=== PATIENT | female | born 1960 | race Caucasian/White ===

== ENCOUNTER 2018-07-21 18:39 | Emergency (ER) | payer BC ==
[2018-07-21] MEDS ORDERED: Ondansetron 4 MG/2 ML SDV IVPUSH ONE (19:13)
[2018-07-21] MEDS ORDERED: HYDROmorphone 1 MG/ML Syringe IVPUSH STA (19:13)
[2018-07-21] MEDS ORDERED: Tamsulosin 0.4 MG Cap.ER PO STA (19:13)
[2018-07-21] MEDS ORDERED: Sodium Chloride 0.9% 1,000 ML IV SCH (19:15)
--- NOTE | 2018-07-21 19:24 | EDM.PDOC ---
ED HPI GENERAL MEDICAL PROBLEM - General Chief Complaint: Flank Pain Stated Complaint: LEFT FLANK PAIN Time Seen by Provider: 07/21/18 18:57 Source of Information: Reports: Patient, Family (), RN Notes Reviewed History Limitations: Reports: No Limitations - History of Present Illness INITIAL COMMENTS - FREE TEXT/NARRATIVE: The patient states that she developed nausea and vomiting around 15:00, which has persisted. She then developed left flank pain around 18:00. She cannot describe the flank pain other than it is "constant". It does not radiate. She has not identified any modifiers. No urinary symptoms, such as dysuria or urinary frequency, in fact, the patient states that she thinks she is dehydrated , because she has not urinated this afternoon. No gross hematuria. No recent fever. No prior similar symptoms. The patient's PCP is Rhiannon Hernandez. Left Flank Pain Score (Numeric/FACES): 9 - Related Data Allergies Allergy/AdvReac Type Severity Reaction Status Date / Time cephalexin [From Keflex] Allergy Rash Verified 07/21/18 18:51 Iodine and Iodide Containing Allergy Rash Verified 07/21/18 18:51 Produc Penicillins Allergy Rash Verified 07/21/18 18:51 Home Meds: Home Meds Magnesium 1 tab PO DAILY 07/21/18 [History] Naltrexone 50 mg PO DAILY 07/21/18 [History] Spironolactone [Aldactone] 25 mg PO DAILY 07/21/18 [History] hydroCHLOROthiazide [Hydrochlorothiazide] 25 mg PO DAILY 07/21/18 [History] Past Medical History Cardiovascular History: Reports: Hypertension Musculoskeletal History: Reports: RA - Past Surgical History HEENT Surgical History: Reports: Oral Surgery (wisdom teeth extraction), Tonsillectomy GI Surgical History: Reports: Appendectomy Female Surgical History: Reports: Section (x 2), D&C (x 2), Hysterectomy, Salpingo-Oophorectomy (bilateral) Dermatological Surgical History: Reports: Plastic Surgical Reconstruction/ Repair (abdominoplasty (tummy tuck)) Social & Family History - Tobacco Use Smoking Status *Q: Never Smoker Second Hand Smoke Exposure: No - Caffeine Use Caffeine Use: Reports: Coffee - Alcohol Use Alcohol Use History: Yes Alcohol Use Frequency: Rarely - Recreational Drug Use Recreational Drug Use: No - Living Situation & Occupation Living situation: Reports: , with Spouse Occupation: Unemployed ED ROS GENERAL - Review of Systems Review Of Systems: ROS reveals no pertinent complaints other than HPI. ED EXAM, RENAL/ - Physical Exam Exam: See Below Exam Limited By: No Limitations General Appearance: Alert, WD/WN, Mild Distress (Moving around exam room - can' t get comfortable) Eye Exam: Bilateral Eye: EOMI, Normal Inspection Ears: Normal External Exam, Hearing Grossly Normal Nose: Normal Inspection Throat/Mouth: Normal Inspection, Normal Lips, Normal Voice, No Airway Compromise Head: Atraumatic, Normocephalic Neck: Normal Inspection, Full Range of Motion Respiratory/Chest: No Respiratory Distress, Lungs Clear, Normal Breath Sounds, No Accessory Muscle Use Cardiovascular: Normal Peripheral Pulses, Regular Rate, Rhythm, No Edema, No Gallop, No JVD, No Murmur, No Rub GI/Abdominal: Normal Bowel Sounds, Soft, Non-Tender, No Organomegaly, No Distention, No Abnormal Bruit, No Mass (Female) Exam: Deferred Back Exam: Normal Inspection, Full Range of Motion. No: CVA Tenderness (L), CVA Tenderness (R) Extremities: Normal Inspection, Normal Range of Motion, No Pedal Edema, Normal Capillary Refill Neurological: Alert, Oriented, Normal Cognition, No Motor/Sensory Deficits Psychiatric: Normal Affect Skin Exam: Warm, Dry, Intact, Normal Color, No Rash Course - Vital Signs Last Recorded V/S: Last Vital Signs Temp 36.0 C 07/21/18 18:49 Pulse 84 07/21/18 18:49 Resp 18 07/21/18 18:49 BP 179/116 H 07/21/18 18:49 Pulse Ox 95 07/21/18 18:49 - Orders/Labs/Meds Orders: Active Orders 24 hr Category Date Time Status Strain Urine [RC] ASDIRECTED Care 07/21/18 19:13 Active Sodium Chloride 0.9% [Normal Saline] 1,000 ml Med 07/21/18 19:15 Active IV ASDIRECTED Medication Orders Sodium Chloride (Normal Saline) 1,000 mls @ 150 mls/hr IV ASDIRECTED MARELY Last Admin: 07/21/18 19:22 Dose: 150 mls/hr Labs: Laboratory Tests 07/21/18 Range/Units 21:15 Urine Color Yellow (Yellow) Urine Appearance Clear (Clear) Urine pH 7.0 (5.0-8.0) Ur Specific [place] 1.025 (1.005-1.030) Urine Protein 2+ H (Negative) Urine Glucose (UA) Negative (Negative) Urine Ketones 1+ H (Negative) Urine Occult Blood Negative (Negative) Urine Nitrite Negative (Negative) Urine Bilirubin Negative (Negative) Urine Urobilinogen 0.2 (0.2-1.0) Ur Leukocyte Esterase Negative (Negative) Urine RBC 5-10 H (0-5) /hpf Urine WBC 0-5 (0-5) /hpf Ur Epithelial Cells 0-5 (0-5) /hpf Urine Bacteria Few (FEW) /hpf Urine Mucus Not seen (FEW) /hpf Meds: Medications Generic Name Dose Route Start Last Admin Trade Name Freq PRN Reason Stop Dose Admin Sodium Chloride 1,000 mls @ 150 mls/hr 07/21/18 19:15 07/21/18 19:22 Normal Saline IV 150 mls/hr ASDIRECTED MARELY Administration Discontinued Medications Generic Name Dose Route Start Last Admin Trade Name Freq PRN Reason Stop Dose Admin Hydromorphone HCl 1 mg 07/21/18 19:13 07/21/18 19:23 Dilaudid IVPUSH 07/21/18 19:14 1 mg ONETIME STA Administration Ondansetron HCl 4 mg 07/21/18 19:13 07/21/18 19:23 Zofran IVPUSH 07/21/18 19:14 4 mg ONETIME ONE Administration Tamsulosin HCl 0.4 mg 07/21/18 19:13 07/21/18 19:45 Flomax PO 07/21/18 19:14 0.4 mg ONETIME STA Administration - Re-Assessments/Exams Free Text/Narrative Re-Assessment/Exam: 07/21/18 20:15 CT of the abdomen and pelvis without contrast is read by Dr. Cruz as: 1. No renal calculi, ureteral dilatation or ureteral stone is seen. 2. Other incidental findings as noted above. Nothing acute is appreciated on noncontrast CT study of the abdomen and pelvis. 07/21/18 21:14 There is a delay in disposition, as the patient has not yet been able to provide a urine sample. 07/21/18 21:20 Notified by Tonya NAILS that the patient has now provided a urine sample. 07/21/18 21:49 Test results discussed with the patient and her . The patient is feeling substantially better. Her urinalysis does not show any occult blood, but does have 5-10 RBCs on the microscopic evaluation. Her urinalysis is otherwise unremarkable, without suggestion of a UTI. The cause of the patient's left flank pain is unclear. As above, the CT scan did not show any evidence of hydroureter or hydronephrosis, but there was a small amount of blood in your urine. It is possible that she passed a stone. It is also possible that her pain was due to a muscle spasm related to her vomiting. For tonight's purposes, I will discharge the patient home with a few tablets of Rowena in case her pain comes back tonight, but if her pain continues , she may need to return to the ED or follow-up with her PCP for further evaluation. Departure - Departure Time of Disposition: 21:51 Disposition: Home, Self-Care 01 Condition: Good Clinical Impression: Acute left flank pain, Nausea & vomiting - Discharge Information *PRESCRIPTION DRUG MONITORING PROGRAM REVIEWED*: Not Applicable *COPY OF PRESCRIPTION DRUG MONITORING REPORT IN PATIENT [place]: Not Applicable Referrals: Rhiannon Hernandez, CLERICAL ASSOCIATE [Primary Care Provider] - Forms: ED Department Discharge Additional Instructions: You were seen in the emergency room for nausea, vomiting, and severe left flank pain. Workup in the ER included a urinalysis and a CT scan of your abdomen and pelvis. Your urinalysis showed a small amount of blood, but no suggestion of a UTI. The CT scan of your abdomen and pelvis was unremarkable. No stone was seen, and there was no evidence of a recent stone. The cause of your flank pain is unclear. You may have had a stone and passed it , or, your flank pain may have been to a muscle spasm related to your vomiting. You have been sent home with a few tablets of the opioid pain reliever Rowena. Take 1-2 tablets up to every 6 hours, as needed for recurrence of pain. If you take Rowena, do not also take Tylenol, as there is Tylenol already in the Rowena. If you take Rowena, do not drive for 10 hours afterwards. Rowena may cause constipation, so consider taking a stool softener. If your pain persists, either return to the ER for reevaluation, or follow-up with your PCP, Rhiannon Hernandez. - My Orders Last 24 Hours: My Active Orders 07/21/18 19:13 Strain Urine [RC] ASDIRECTED 07/21/18 19:15 Sodium Chloride 0.9% [Normal Saline] 1,000 ml IV ASDIRECTED - Assessment/Plan Last 24 Hours: My Active Orders 07/21/18 19:13 Strain Urine [RC] ASDIRECTED 07/21/18 19:15 Sodium Chloride 0.9% [Normal Saline] 1,000 ml IV ASDIRECTED
--- NOTE | 2018-07-21 20:02 | CT ---
CT abdomen and pelvis Technique: Multiple axial sections were obtained from above the dome of the diaphragm inferiorly through the pubic symphysis. Intravenous and oral contrast not utilized. Study has been performed as a ureteral stone protocol. Comparison: No previous abdominal imaging is available. Findings: Kidneys show no abnormal calcifications. No hydronephrosis or ureteral dilatation is seen. No abnormal calcifications are seen along the course of the ureters. No calcifications are seen within the bladder. Visualized lung bases show a nothing acute. Noncontrast appearance of the liver shows no discrete abnormality. Gallbladder contains no calcified gallstones. Spleen appears within normal limits. Adrenal glands show no nodule. Pancreas is within normal limits. Small amount of accessory splenic tissue is seen medial to the spleen. Aorta shows mild atherosclerotic calcification without aneurysm. No retroperitoneal adenopathy or mesenteric abnormalities are seen. No pelvic mass or adenopathy is seen. Appendix is not visualized with certainty. No small bowel dilatation is seen. Bone window settings were reviewed which shows scoliosis within the spine with mild degenerative change seen within the lower lumbar spine. Impression: 1. No renal calculi, ureteral dilatation or ureteral stone is seen. 2. Other incidental findings as noted above. Nothing acute is appreciated on noncontrast CT study of the abdomen and pelvis. Diagnostic code #2
[2018-07-21] MEDS ORDERED: Take Home: Acetaminophen/HYDROcodone 325-5 MG, 5 Tab Pack ONE (21:52)
== END 2018-07-21 22:00 | disposition home or self-care (01) ==
LOC: JD.ED 18:39
DX: R11.2 Nausea with vomiting, unspecified (principal); R10.9 Unspecified abdominal pain; I10 Essential (primary) hypertension; Z79.899 Other long term (current) drug therapy; Z88.1 Allergy status to other antibiotic agents; Z88.0 Allergy status to penicillin; Z91.09 Other allergy status, other than to drugs and biological substances
CPT/HCPCS: 74176; 81001; 96361; 96374; 96375; 99284; A9270; J1170; J2405; J7040